=== PATIENT | male | born 1995 | race Caucasian/White ===

== ENCOUNTER 2016-05-21 19:03 | Emergency (ER) | payer OTHER ==
[2016-05-21 19:16] VITALS: BP 102/80
[2016-05-21] MEDS ORDERED: Ibuprofen TAB* 600 MG PO ONE (19:19)
--- NOTE | 2016-05-21 19:19 | UC ---
Hand/Wrist HPI - HPI Summary HPI Summary: Approx 1 hour ago punched wooden wall with R hand. Now has abrasion to 4th MCP joint, and marked pain and swelling in proximal 4th-5th MCs. No hx of injury or surgery to RUE. - History Of Current Complaint Stated Complaint: HAND INJURY Time Seen by Provider: 05/21/16 19:07 Hx Obtained From: Patient ?: No Onset/Duration: Sudden Onset Severity Initially: Moderate Severity Currently: Moderate Character Of Pain: Dull, Aching Aggravating Factor(s): Movement Alleviating: Rest Associated Signs And Symptoms: Positive: Swelling, Bruising Related History: Dominant Hand Right - Allergies/Home Medications Allergies/Adverse Reactions: Allergies Allergy/AdvReac Type Severity Reaction Status Date / Time No Known Allergies Allergy Verified 05/21/16 19:16 Home Medications: Home Medications NK [No Home Medications Reported] 05/21/16 [History Confirmed 05/21/16] PMH/Surg Hx/FS Hx/Imm Hx Previously Healthy: Yes Endocrine History Of: Denies: Diabetes, Thyroid Disease Cardiovascular History Of: Denies: Cardiac Disorders, Hypertension Respiratory History Of: Denies: COPD, Asthma GI/ History Of: Denies: Ulcer - Surgical History Surgical History: None - Family History Known Family History: Positive: Hypertension, Respiratory Disease - asthma - Social History 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 Alcohol Use: None Substance Use Type: None Smoking Status (MU): Never Smoked Tobacco - Immunization History Vaccination Up to Date: No Review of Systems Constitutional: Negative Skin: Other - abrasion Eyes: Negative ENT: Negative Respiratory: Negative Cardiovascular: Negative Gastrointestinal: Negative Genitourinary: Negative Motor: Negative Neurovascular: Negative Musculoskeletal: Arthralgia Neurological: Negative Psychological: Negative All Other Systems Reviewed And Are Negative: Yes Physical Exam Triage Information Reviewed: Yes Appearance: Well-Nourished, Pain Distress - mild Vital Signs Reviewed: Yes Eye Exam: Normal Eyes: Positive: Conjunctiva Clear ENT Exam: Normal ENT: Positive: Normal ENT inspection, Hearing grossly normal, Pharynx normal, TMs normal Dental Exam: Normal Neck exam: Normal Neck: Positive: Supple, Nontender, No Lymphadenopathy Respiratory Exam: Normal Respiratory: Positive: Chest non-tender, Lungs clear, Normal breath sounds, No respiratory distress, No accessory muscle use Cardiovascular Exam: Normal Cardiovascular: Positive: RRR, No Murmur Musculoskeletal: Positive: 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 Garcia suggested that we could try to reduce dislocation here with traction on the fingers. Otherwise, apply an ulnar gutter splint and f/u outpatient. - Differential Dx/Diagnosis Provider Diagnoses: R 4th and 5th proximal metacarpal dislocation and reduction. R hand abrasion - Physician Notifications Discussed Patient Care With: Dr. Garcia Instructed by Provider To: Have Pt Call For Appt. Discharge - Discharge Plan Condition: Stable Disposition: HOME Patient Education Materials: Finger Dislocation (ED) Referrals: Dakota Garcia MD [Medical Doctor] - 2 Days Additional Instructions: Ice and elevate the hand as much as possible for the next 1-2 days. Please follow up with an orthopedist within 48 hours. Keep the splint on all the time; do not bathe with it or take it off.
--- NOTE | 2016-05-21 19:49 | RAD ---
INDICATION: Pain overlying the fourth and fifth metacarpals after punching a wall COMPARISON: None. TECHNIQUE: 4 views of the right hand were obtained. FINDINGS: On the lateral view images the proximal heads of the fourth and fifth metacarpals appear to be displaced dorsally relative to the carpal bones. Hyperdense material proximal to these metacarpals could indicate avulsion fracture, although no donor site is identified. The remaining visualized bones are appropriately aligned and well corticated. IMPRESSION: Dorsal dislocation of the proximal right fourth and fifth metacarpals.
--- NOTE | 2016-05-21 20:11 | RAD ---
INDICATION: Post reduction film of dislocated fourth and fifth metacarpals COMPARISON: Right hand radiograph from the same date acquired at 1922 hours TECHNIQUE: AP and lateral views of the right hand were obtained at 1950 hours FINDINGS: The previously dislocated proximal right fourth and fifth metacarpals appear to be appropriately aligned. Calcific density at the ulnar aspect of the joint space between the fifth metacarpal and hamate is noted but there is no definite donor site. Remaining visualized bones are intact and properly aligned. IMPRESSION: There is been interval reduction of the dislocated fourth and fifth metacarpals. If the patient's symptoms persist, follow-up imaging is recommended.
== END 2016-05-21 20:10 | disposition home or self-care (01) ==
LOC: UCEAST 19:03
DX: S63.264A Dislocation of metacarpophalangeal joint of right ring finger, initial encounter (principal); S63.266A Dislocation of metacarpophalangeal joint of right little finger, initial encounter; S60.511A Abrasion of right hand, initial encounter; W22.09XA Striking against other stationary object, initial encounter; Y93.9 Activity, unspecified; Y92.9 Unspecified place or not applicable
CPT/HCPCS: 99211; A9270-GY; G0463

== ENCOUNTER → 2016-05-30 10:05 | Day surgery (SDC) | payer OTHER ==
[~2016-05-30 10:05] MED LIST: Buffered Lidocaine 1% SYR 3ML* 3 ML/SYR SYRINGE INTRADERM ONE; Buffered Lidocaine 1% SYR 3ML* 3 ML/SYR SYRINGE ONE; Bupivacaine 0.25% SDV* 30 ML ONE; Dexamethasone IV* 4 MG/ML 1 ML (4 MG) IV SLOW PU ONE; Dexamethasone IV* 4 MG/ML 1 ML (4 MG) ONE; Famotidine IV* 10 MG/ML 2 ML (20 mg) IV ONE; Famotidine IV* 10 MG/ML 2 ML (20 mg) ONE; HYDROcodone/ACETAMIN 5-325 MG* 1 TAB ONE; HYDROcodone/ACETAMIN 5-325 MG* 1 TAB PO PRN; Ketorolac INJ* 30 MG/ML 1 ML VIAL ONE; Lidocaine 2% PF * 5 ML VIAL ONE; Midazolam* 1 MG/ML 5 ML VIAL (5 MG) ONE; Ondansetron INJ* 2 MG/ML VIAL ONE; PROCHLORPERAZINE INJ 5 MG/ML 2 ML VIAL IV PRN; Propofol* 10 MG/ML 20 ML BTL IV PUSH ONE; ceFAZolin 2 GM PREMIX (*) 2 GM/50 ML BAG IVPB ONE; fentaNYL* 50 MCG/ML 2 ML VIAL (100 MCG VIAL) IV PRN; fentaNYL* 50 MCG/ML 2 ML VIAL (100 MCG VIAL) ONE
[2016-05-30 14:14] VITALS: BP 132/72
--- NOTE | 2016-06-01 06:03 | OP ---
OPERATIVE NOTE: DATE OF OPERATION: 05/30/16 DATE OF : [birth year] SURGEON: Domingo Lu MD [employer] SUPERVISOR: SELMA Ulloa ANESTHESIOLOGIST: Dr. Mcdonald ANESTHESIA: General. PRE-OP DIAGNOSIS: Right fourth and fifth carpometacarpal fracture dislocations. POST-OP DIAGNOSIS: Right fourth and fifth carpometacarpal fracture dislocations. OPERATIVE PROCEDURE: 1. Closed reduction and percutaneous pinning of right fourth carpometacarpal joint dislocation 2. Closed reduction and percutaneous pinning of right fith carpometacarpal joint dislocation. INDICATIONS: Daniel is a 20-year-old male who had a punching injury and dislocated his fourth and fifth carpometacarpal joints. He had a closed reduction performed in the emergency room. He presented to the office and there was a little bit of persistent dorsal subluxation, particularly the fourth carpometacarpal joint and a little bit of incongruity of the joint. We talked about risks and benefits and he elected to proceed with closed reduction and percutaneous pinning. FINDINGS: As expected. EBL: 5 mL. COMPLICATIONS: None. DESCRIPTION OF PROCEDURE: Daniel was seen in the preoperative holding area and the correct side and site were marked. We came back to the operating room where anesthesia was induced. The arm was prepped and draped in the usual fashion. A formal time-out was performed. I then went ahead and brought in fluoroscopy and critically looked at the joints. Ultimately, there was a little bit of just dorsal subluxation of the fourth carpometacarpal joint. I went ahead and held some traction and gave this a little push volarly. While holding some traction, I then went ahead and placed a 0.062 wire across the base of the fifth metacarpal bone and down into the hamate. The first wire was placed beginning distal ulnar. I then placed a wire more radially through the base of the fifth metacarpal and down into the hamate bone. Again, holding the reduction, I placed one more wire through the base of the fourth metacarpal bone down into the hamate as well. I then checked final fluoroscopic images and everything looked good. I was satisfied with the reduction and the position of the pins, so I went ahead and clipped and bent the pins back. The pins were then dressed with Xeroform, 4x4's, sterile Webril, and an ulnar gutter splint was applied with the fingers in the protected position, grabbing the middle, ring, and small fingers. He was then woken back up and taken to the recovery room in stable condition. [id number]/CPS #: [id number] MTDD
--- NOTE | 2016-06-03 12:16 | RAD ---
CPT II Codes: 6045F INDICATION: Dislocation involving the right fourth and fifth carpometacarpal joints TECHNIQUE: Intraoperative fluoroscopy was provided during percutaneous pin fixation involving the right fourth and fifth proximal metacarpals. FINDINGS: 3 spot films depict placement of 3 percutaneous pin spanning the right proximal fourth and fifth metacarpals and articulating hamate bone. Fluoroscopy time: 1 minute and 4 seconds IMPRESSION: As above.
== END | disposition home or self-care (01) ==
LOC: OREAST 10:05
PROVIDERS: ATTEND Orthopaedic Surgery Hand Surgery
DX: S62.394A Other fracture of fourth metacarpal bone, right hand, initial encounter for closed fracture (principal); S62.396A Other fracture of fifth metacarpal bone, right hand, initial encounter for closed fracture; W22.01XA Walked into wall, initial encounter; Y92.9 Unspecified place or not applicable; Z79.1 Long term (current) use of non-steroidal anti-inflammatories (NSAID)
CPT/HCPCS: 76000; C1776; J0690; J1100; J1885; J2250; J2405; J2704; J3010

== ENCOUNTER 2017-02-28 11:36 | Emergency (ER) | payer SELFPAY ==
[2017-02-28 11:43] VITALS: BP 121/95
--- NOTE | 2017-02-28 12:38 | ED ---
Laceration/Wound HPI - HPI Summary HPI Summary: 21 male presents to ED with complaints of laceration to left little finger that occurred while using a band saw at home, just [employer]. He is right hand dominant. States he thinks it is deep, however bleeding is controlled. No other injuries. No FB and denies any loss of range of motion of fingers, numbness/tingling and swelling/bruising. No other injuries. Tetanus is up to date. No other complaints. No medication. No PMHx. - History of Current Complaint Stated Complaint: FINGER LAC Time Seen by Provider: 02/28/17 12:22 Hx Obtained From: Patient Mechanism of Injury: Sharp/Blunt Trauma Onset/Duration: Sudden Onset Aggravating: Movement Alleviating: Compression Timing: Constant Onset Severity: Severe Current Severity: Moderate Pain Intensity: 7 Pain Scale Used: 0-10 Numeric Associated Signs & Symptoms: Negative Related Hx: Dominant Hand (Right) - Allergy/Home Medications Allergies/Adverse Reactions: Allergies Allergy/AdvReac Type Severity Reaction Status Date / Time No Known Allergies Allergy Verified 05/30/16 10:58 PMH/Surg Hx/FS Hx/Imm Hx Endocrine/Hematology History: Denies: Hx Diabetes, Hx Thyroid Disease Cardiovascular History: Denies: Hx Hypertension Respiratory History: Denies: Hx Asthma, Hx Chronic Obstructive Pulmonary Disease (COPD) GI History: Denies: Hx Ulcer Sensory History: Denies: Hx Contacts or Glasses, Hx Hearing Aid Opthamlomology History: Denies: Hx Contacts or Glasses - Surgical History Surgery Procedure, Year, and Place: n/a - Immunization History Immunizations Up to Date: Yes Infectious Disease History: No Infectious Disease History: Denies: Hx Clostridium Difficile, Hx Hepatitis, Hx Human Immunodeficiency Virus (HIV), Hx of Known/Suspected MRSA, Traveled Outside the in Last 30 Days - Family History Known Family History: Positive: Hypertension, Respiratory Disease - asthma - Social History Alcohol Use: None Substance Use Type: Reports: None Smoking Status (MU): Never Smoked Tobacco Review of Systems Constitutional: Negative Cardiovascular: Negative Respiratory: Negative Musculoskeletal: Negative Positive: Other - laceration left 5th finger Neurological: Negative All Other Systems Reviewed And Are Negative: Yes Physical Exam Triage Information Reviewed: Yes Vital Signs On Initial Exam: Initial Vitals Temp Pulse Resp BP Pulse Ox 99.7 F 82 20 121/95 99 02/28/17 11:40 02/28/17 11:40 10/20/17 11:40 02/28/17 11:40 02/28/17 11:40 Vital Signs Reviewed: Yes Appearance: Positive: Well-Appearing, Well-Nourished, Pain Distress - moderate when touching laceration area and irrigating. Skin: Positive: Warm, Skin Color Reflects Adequate Perfusion, Dry, Other - small 1cm linear laceration to tip of 5th finger of left hand, sparing nailbed. no active bleeding, superifical and SQ layer. well approximated, no bony involvement and no sign of FB. throughouly irrigated. Negative: Cold, Numb, Cyanosis @, Pale, Erythema @ Head/Face: Positive: Normal Head/Face Inspection Eyes: Positive: Conjunctiva Clear ENT: Positive: Hearing grossly normal Neck: Positive: Supple, Nontender Respiratory/Lung Sounds: Positive: Clear to Auscultation, Breath Sounds Present. Negative: Rales, Rhonchi, Wheezes Cardiovascular: Positive: Normal, RRR, Pulses are Symmetrical in both Upper and Lower Extremities - 2+ radial. Negative: Murmur, Rub Musculoskeletal: Positive: Normal, Strength/ROM Intact Neurological: Positive: Normal, Sensory/Motor Intact, Alert, Oriented to Person Place, Time, NV Bundle Intact Distally, Normal Gait Procedures - Laceration/Wound Repair 1 Location: Other - fifth digit, left Description: Linear Length, Depth and Shape: 1cm linear and superficial SQ layer, with well approximation and without active bleeding Irrigated w/ Saline (ccs): 500 Laceration/Wound Explored: clean, no foreign body removed Closure: Skin Adhesive Sterile Dressing Applied?: Yes Diagnostics - Vital Signs Vital Signs Temp Pulse Resp BP Pulse Ox 02/28/17 11:40 99.7 F 82 20 121/95 99 - Laboratory Lab Statement: Any lab studies that have been ordered have been reviewed, and results considered in the medical decision making process. Laceration Repair Course/Dx - Course Course Of Treatment: Laceration was well approximated and not actively bleeding. Not deep. Was closed with skin adhesive and dressing after throughouly irrigating. no concern for bony involvement, therefore no imaging. Motor/sensory intact. no concern for FB. Clsoed nicely. Tetanus was already up to date. Offered ibuprofen however declined. Given brace to cover wound and to refrain from bumping it causing it to re-open. Wear for 3-5 days. Recommend RICE and triple anitbiotic. Keep clean and dry. Does not appear to need oral antibiotics at this time. Aware of worsening signs and symptoms such as infection and opening of wound. Follow up with PCP for recheck. - Differential Dx Differental Diagnoses: Abrasion, Avulsion, Hematoma, Laceration - Clinical Impression Provider Diagnoses: Laceration of left little finger Discharge - Discharge Plan Condition: Improved Disposition: HOME Patient Education Materials: Laceration (ED), Skin Adhesive Care (ED) Referrals: No Primary Care Phys,NOPCP [Primary Care Provider] - [facility] [place] [facility] [Outside] Additional Instructions: Keep wound clean and dry. Do not remove dressing for 24-48 hours. Refrain from getting wet for 24-48 hours to allow glue to keep laceration closed until healed. Gently rinse and apply triple antibiotic ointment after 24 hours. Keep dressed. Any new or worsening signs such as infection, increased pain or opening laceration please return and seek medical attention. Follow up and have re-checked to ensure improvement.
== END 2017-02-28 13:28 | disposition home or self-care (01) ==
LOC: ED 11:36
DX: S61.217A Laceration without foreign body of left little finger without damage to nail, initial encounter (principal); W31.2XXA Contact with powered woodworking and forming machines, initial encounter; Y93.9 Activity, unspecified; Y92.009 Unspecified place in unspecified non-institutional (private) residence as the place of occurrence of the external cause
CPT/HCPCS: 12001; 99281

== ENCOUNTER 2018-10-28 17:27 | Emergency (ER) | payer SELFPAY ==
--- NOTE | 2018-10-28 20:13 | ED ---
Upper Extremity Pain - HPI Summary HPI Summary: 23-year-old male presents with right hand injury today. He states he ended up punching the floor. He has limited range of motion to his fourth and fifth finger. He has edema noted to the metacarpals of his fourth and finger. has previous fracture to this area. No numbness or tingling. No wrist pain. No other injury. - History of Current Complaint Chief Complaint: EDExtremityUpper Stated Complaint: RIGHT HAND INJURY PER PT Time Seen by Provider: 10/28/18 20:03 - Allergies/Home Medications Allergies/Adverse Reactions: Allergies Allergy/AdvReac Type Severity Reaction Status Date / Time No Known Allergies Allergy Verified 10/28/18 17:33 Home Medications: Home Medications NK [No Home Medications Reported] 10/28/18 [History Confirmed 10/28/18] PMH/Surg Hx/FS Hx/Imm Hx Endocrine/Hematology History: Denies: Hx Diabetes, Hx Thyroid Disease Cardiovascular History: Denies: Hx Hypertension Respiratory History: Denies: Hx Asthma, Hx Chronic Obstructive Pulmonary Disease (COPD) GI History: Denies: Hx Ulcer Sensory History: Denies: Hx Contacts or Glasses, Hx Hearing Aid Opthamlomology History: Denies: Hx Contacts or Glasses - Surgical History Surgery Procedure, Year, and Place: n/a Infectious Disease History: Yes Infectious Disease History: Denies: Hx Clostridium Difficile, Hx Hepatitis, Hx Human Immunodeficiency Virus (HIV), Hx of Known/Suspected MRSA, Traveled Outside the in Last 30 Days - Family History Known Family History: Positive: Hypertension, Respiratory Disease - asthma - Social History Alcohol Use: None Substance Use Type: Reports: None Smoking Status (MU): Never Smoked Tobacco Review of Systems Negative: Fever Negative: Chest Pain Negative: Shortness Of Breath Positive: Myalgia - right wrist pain All Other Systems Reviewed And Are Negative: Yes Physical Exam Triage Information Reviewed: Yes Vital Signs On Initial Exam: Initial Vitals Temp Pulse Resp BP Pulse Ox 97.9 F 105 16 113/83 97 10/28/18 17:31 10/28/18 17:31 10/28/18 17:31 10/28/18 17:31 10/28/18 17:31 Vital Signs Reviewed: Yes Appearance: Positive: Well-Appearing Skin: Positive: Warm, Dry Head/Face: Positive: Normal Head/Face Inspection Eyes: Positive: Normal, Conjunctiva Clear ENT: Positive: Pharynx normal Respiratory/Lung Sounds: Positive: Clear to Auscultation, Breath Sounds Present Cardiovascular: Positive: Normal, RRR Musculoskeletal: Positive: Limited @ - 4-5th metacarpel, Edema Right - 4-5th metacarpel, Other - capillary refill<2 secs, nontender wrist, nontender snuff box Neurological: Positive: Normal Psychiatric: Positive: Normal Diagnostics - Vital Signs Vital Signs Temp Pulse Resp BP Pulse Ox 10/28/18 17:31 97.9 F 105 16 113/83 97 - Laboratory Lab Statement: Any lab studies that have been ordered have been reviewed, and results considered in the medical decision making process. - Radiology hand Radiology Interpretation Completed By: ED Physician Summary of Radiographic Findings: no fracture Course/Dx - Course Course Of Treatment: 23-year-old male presents with right hand injury today. He states he ended up punching the floor. He has limited range of motion to his fourth and fifth finger. He has edema noted to the metacarpals of his fourth and finger. has previous fracture to this area. No numbness or tingling. No wrist pain. No other injury. On exam edema noted to his fourth and fifth metacarpal. Neurovascular intact. xray normal. Gave Milind. Told to ice elevate. Patient understands agrees with plan. - Diagnoses Differential Diagnosis/HQI/PQRI: Positive: Contusion, Fracture (Closed), Strain Provider Diagnoses: Injury of right hand Discharge - Sign-Out/Discharge Documenting (check all that apply): Patient Departure Patient Received Moderate/Deep Sedation with Procedure: No - Discharge Plan Condition: Good Disposition: HOME Patient Education Materials: R.I.C.E. Treatment (ED) Referrals: [facility] [place] [facility] [Outside] Additional Instructions: Take Tylenol or ibuprofen every 6 hours as needed for pain Apply ice, rest, elevate Keep milind on area as needed Establish care with primary care physician Return to ED if develop any new or worsening symptoms - Billing Disposition and Condition Condition: GOOD Disposition: Home
[2018-10-28 20:45] VITALS: BP 104/63
== END 2018-10-28 20:44 | disposition home or self-care (01) ==
LOC: ED 17:27
DX: S69.91XA Unspecified injury of right wrist, hand and finger(s), initial encounter (principal); W22.8XXA Striking against or struck by other objects, initial encounter; Y92.9 Unspecified place or not applicable; Z87.81 Personal history of (healed) traumatic fracture
CPT/HCPCS: 99282